=== PATIENT | female | born 1985 | race Native Hawaiian/Other Pacific Islander ===

== ENCOUNTER 2022-06-26 12:15 | Emergency (ER) | payer SELFPAY ==
[2022-06-26 12:35] VITALS: BP 126/81; PULSE 83; RESP 18; TEMP 37; O2SAT 99; BMI 26.8
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
[2022-06-26] MEDS: orphenadrine 30 mg/mL Inj 2 mL 60 MG IM (14:20)
[2022-06-26] MEDS: ketorolac 60 mg/2 mL INJ IM (14:20)
--- NOTE | 2022-06-27 10:15 | DCPLANNER ---
Addendum entered by Essence Mccray 07/19/22 14:29: Patient had a follow up appointment scheduled with ENT - Patient did attend appointment. Addendum entered by Essence Mccray 07/03/22 14:55: Patient has a follow up appointment scheduled for Saturday, July 16, 2022 at 1:[address] Kumar at ENT. Clinic will call patient with appointment information. Original Note: stage manager had message to schedule a follow up appointment for patient with ENT. stage manager sent patients information to the front office staff at ENT. Patients information will be printed and reviewed. Clinic will call patient with appointment information.
== END 2022-06-26 14:45 | disposition home or self-care (01) ==
PROVIDERS: Emergency Provider Physician Assistant
DX: S02.40DA Maxillary fracture, left side, initial encounter for closed fracture (principal); V49.9XXA Car occupant (driver) (passenger) injured in unspecified traffic accident, initial encounter
CPT/HCPCS: 70450; 70486; 72100; 72125; 96372; 99284; J1885; J2360

== ENCOUNTER → 2022-07-16 13:17 | Outpatient (BNVA) | payer MEDICAID, SELFPAY | PROVIDERS: PCP Nurse Practitioner Family; Visit Provider Otolaryngology | DX: S02.92XA Unspecified fracture of facial bones, initial encounter for closed fracture (principal); V49.9XXA Car occupant (driver) (passenger) injured in unspecified traffic accident, initial encounter; Y93.9 Activity, unspecified | CPT/HCPCS: 99203 ==